=== PATIENT | female | born 1950 | race Caucasian/White ===

== ENCOUNTER 2025-02-02 19:29 | Inpatient (IN) | payer MEDICARE, SELFPAY ==
[2025-02-02] VITALS (24 sets, daily range): BP systolic 143–248; BP diastolic 70–138; BMI 18.6; BMI 18.5
[2025-02-02 15:41] LABS: Hematocrit 42.0 % (37.0-47.0); Hemoglobin 14.9 g/dL (12.0-16.0); Mean Corp Hgb Conc. 35.5 g/dL (33.0-37.0); Mean Corpuscular Volume 88.8 fL (81.0-99.0); Nucleated Red Blood Cells % 0 %; Platelet Count 386 10^3/uL (130-400); Red Cell Dist. Width 12.6 % (11.5-14.5)
[2025-02-02 15:46] LABS: INR 1.04; PT 13.9 Sec (11.4-14.6)
[2025-02-02 15:47] LABS: APTT 28.7 Sec (23.4-35.0)
[2025-02-02 15:58] LABS: ALT (SGPT) 24 U/L (0-35); AST (SGOT) 39 U/L (14-36); Albumin 5.4 g/dl (3.5-5.0); Alkaline Phosphatase 102 U/L (38-126); Blood Urea Nitrogen 21 mg/dl (7-17); Calcium 9.9 mg/dl (8.4-10.2); Carbon Dioxide 21 mmol/L (22-30); Chloride 99 mmol/L (98-107); Estimated Creatinine Clearance 36 ml/min; Glucose 269 mg/dl (70-99); Potassium 4.1 mmol/L (3.5-5.1); Sodium 135 mmol/L (135-145); Total Protein 9.2 g/dl (6.3-8.2); eGFR 59.49
[2025-02-02 16:01] LABS: Troponin I 0.029 ng/ml
--- NOTE | 2025-02-02 16:02 | ED.CVA ---
History of Present Illness
<lIan Connor Jr., PA-C - Last Filed: 02/02/25 19:07>
General
Chief Complaint: CVA/TIA Symptoms
Source: patient
Exam Limitations: none
Time Seen by Provider: 02/02/25 15:30
Nursing documentation reviewed up to this point in time: agreed with
Onset of Stroke Symptoms
Onset of symptoms known: Yes
Date of onset of symptoms: 02/02/25
Time of onset of symptoms: 12:00
Time pt last seen normal is known: No
History of Present Illness
History of Present Illness:
74-year-old female with past ministry of previous stroke a few years ago presenting to the emergency department today with concerns of an episode where she had expressive aphasia according to the daughter that occurred for roughly 30 minutes roughly
an hour prior to arrival. She does claim that she has had some constipation and has been taking medications to help with constipation did have some degree of headache sweatiness and nausea since last night. Denies any specific chest pain shortness
of breath. No ongoing neurologic symptoms.
Past History
<Ilan Connor Jr., PA-C - Last Filed: 02/02/25 19:07>
Past History
ED Past Medical History: Cancer (melanoma (excised 08/2018)), Other (Peripheral neuropathy) and Other (Chronic low back pain, compression fracture)
ED Past Surgical History: Appendectomy, Cholecystectomy and Gynecological
Social History
Tobacco: Smoker
Alcohol: Occasional
Drug: None
Living: alone
Employment: Retired
Family History
Family History: Other (Reviewed and Noncontributory; parents < 65 w/ [place])
Review of Systems
<Ilan Connor Jr., PA-C - Last Filed: 02/02/25 19:07>
Review of Systems
Allergies reviewed?: Yes
All Other Systems: ROS reviewed and negative except as documented in HPI and ROS
Phy Exam
<Ilan Connor Jr., PA-C - Last Filed: 02/02/25 19:07>
Physical Exam
Physical Exam:
GENERAL: Alert , in no apparent distress
EYE: pupils equal and reactive
NECK: Supple, no significant adenopathy.
ENT: o/p clr, mmm.
CARDIAC: Regular rate and rhythm .
LUNGS: Clear breath sounds bilaterally, no acute respiratory distress, no wheezes/rales/rhonchi
ABDOMEN: Soft, without focal tenderness, no r/g, no cvat
NEUROLOGICAL: Alert and oriented, no focal neuro deficits 5-5 upper and lower extremity strength normal sensation with palpating bilaterally normal finger-nose and heel jones no pronator drift
SKIN: Warm and dry, skin intact.
MUSCULOSKELETAL: No edema, well perfused.
PSYCH: Normal and appropriate interaction.
Course
<Ilan Connor Jr., PA-C - Last Filed: 02/02/25 19:07>
Orders/Labs/Results
Orders:
Orders
02/02/25 15:14
Electrocardiogram (*1) Urgent
Reason for Study: Other
Other Reason for Exam: Possible Stroke
Cardiac Monitoring- Treatment ONCE
02/02/25 15:15
EKG- Treatment ONCE
02/02/25 15:19
Complete Blood Count/With Diff Urgent
Comprehensive Metabolic Panel Urgent
PTT Urgent
Prothrombin Time Urgent
Troponin I Urgent
02/02/25 16:24
Acetaminophen 1000MG/100Ml [Ofirmev] 1,000 mg in 100 ml IV ONCE
Acetaminophen IV Indication:: No DC & No Enteral Access
02/02/25 16:25
CT Head & Neck Angio W/wo IV Urgent
Comment:
Reason For Exam: severe ZAIDI, aphasia
HYDROmorphone [Dilaudid] 0.5 mg IV NOW STA
02/02/25 16:27
HYDROmorphone [Dilaudid] 0.5 mg .ROUTE .STK-MED ONE
02/02/25 17:41
Labetalol HCl [Trandate] 10 mg IV NOW STA
02/02/25 18:55
Labetalol HCl [Trandate] 20 mg .ROUTE .STK-MED ONE
02/02/25 19:04
Urine Culture Reflexed from UA [Urinalysis Reflex To Culture] Urgent
02/02/25 19:05
HYDROmorphone [Dilaudid] 0.5 mg IV NOW STA
02/02/25 19:15
Nicardipine 40 mg/200 ml [Cardene] 40 mg in 200 ml IV PER PROTOCOL
Initial dose in mg/hr, then titrate:: 5
Titrate to keep:: BP < 180/105 mmHg
Titrate by mg/hr:: 2.5 mg/hr
Frequency of titrations (minutes):: 5-15 minutes
Maximum dose in mg/hr:: 15
Begin to taper infusion when:: Remained at goal for 2hrs
Taper by mg/hr:: 2.5 mg/hr
Frequency of taper (minutes) if patient maintains goal:: every 15-30 minutes
Taper to off?: Yes
If infusion off & no longer maintaining goal:: Contact Provider
Abnormal Lab Results
02/02/25
15:19
MCH 31.5 H pg
(27.0-31.0)
Abs Immat Gran (auto) 0.1 H 10^3/uL
(0-0.05)
Absolute Neuts (auto) 7.7 H 10^3/uL
(1.4-6.5)
Absolute Lymphs (auto) 1.0 L 10^3/uL
(1.2-3.4)
Absolute Monos (auto) 0.9 H 10^3/uL
(0.1-0.6)
Immature Gran % 0.7 H %
(0-0.5)
Neutrophils % 79.5 H %
(42.2-75.2)
Lymphocytes % 10.7 L %
(20.5-51.1)
Carbon Dioxide 21 L mmol/L
(22-30)
BUN 21 H mg/dl
(7-17)
Glucose 269 H mg/dl
(70-99)
AST 39 H U/L
(14-36)
Total Protein 9.2 H g/dl
(6.3-8.2)
Albumin 5.4 H g/dl
(3.5-5.0)
02/02/25 15:19
02/02/25 15:19
Vital Signs
Initial and Last Documented VS:
Initial Vital Signs
Temp Pulse Resp BP Pulse Ox
97.8 F 94 14 229/100 100
02/02/25 15:07 02/02/25 15:07 02/02/25 15:07 02/02/25 15:07 02/02/25 15:07
Last Documented Vital Signs
Temp Pulse Resp BP Pulse Ox
97.8 F 96 19 219/104 100
02/02/25 15:07 02/02/25 18:55 02/02/25 18:30 02/02/25 18:55 02/02/25 16:05
<Qian Bustamante MD - Last Filed: 02/02/25 16:29>
Orders/Labs/Results
Orders:
Orders
02/02/25 15:14
Electrocardiogram (*1) Urgent
Reason for Study: Other
Other Reason for Exam: Possible Stroke
Cardiac Monitoring- Treatment ONCE
02/02/25 15:15
EKG- Treatment ONCE
02/02/25 15:19
Complete Blood Count/With Diff Urgent
Comprehensive Metabolic Panel Urgent
PTT Urgent
Prothrombin Time Urgent
Troponin I Urgent
02/02/25 16:24
Acetaminophen 1000MG/100Ml [Ofirmev] 1,000 mg in 100 ml IV ONCE
Acetaminophen IV Indication:: No DC & No Enteral Access
02/02/25 16:25
CT Head & Neck Angio W/wo IV Urgent
Comment:
Reason For Exam: severe ZAIDI, aphasia
HYDROmorphone [Dilaudid] 0.5 mg IV NOW STA
02/02/25 16:27
HYDROmorphone [Dilaudid] 0.5 mg .ROUTE .STK-MED ONE
02/02/25 17:41
Labetalol HCl [Trandate] 10 mg IV NOW STA
02/02/25 18:55
Labetalol HCl [Trandate] 20 mg .ROUTE .STK-MED ONE
02/02/25 19:04
Urine Culture Reflexed from UA [Urinalysis Reflex To Culture] Urgent
02/02/25 19:05
HYDROmorphone [Dilaudid] 0.5 mg IV NOW STA
02/02/25 19:15
Nicardipine 40 mg/200 ml [Cardene] 40 mg in 200 ml IV PER PROTOCOL
Initial dose in mg/hr, then titrate:: 5
Titrate to keep:: BP < 180/105 mmHg
Titrate by mg/hr:: 2.5 mg/hr
Frequency of titrations (minutes):: 5-15 minutes
Maximum dose in mg/hr:: 15
Begin to taper infusion when:: Remained at goal for 2hrs
Taper by mg/hr:: 2.5 mg/hr
Frequency of taper (minutes) if patient maintains goal:: every 15-30 minutes
Taper to off?: Yes
If infusion off & no longer maintaining goal:: Contact Provider
Abnormal Lab Results
02/02/25
15:19
MCH 31.5 H pg
(27.0-31.0)
Abs Immat Gran (auto) 0.1 H 10^3/uL
(0-0.05)
Absolute Neuts (auto) 7.7 H 10^3/uL
(1.4-6.5)
Absolute Lymphs (auto) 1.0 L 10^3/uL
(1.2-3.4)
Absolute Monos (auto) 0.9 H 10^3/uL
(0.1-0.6)
Immature Gran % 0.7 H %
(0-0.5)
Neutrophils % 79.5 H %
(42.2-75.2)
Lymphocytes % 10.7 L %
(20.5-51.1)
Carbon Dioxide 21 L mmol/L
(22-30)
BUN 21 H mg/dl
(7-17)
Glucose 269 H mg/dl
(70-99)
AST 39 H U/L
(14-36)
Total Protein 9.2 H g/dl
(6.3-8.2)
Albumin 5.4 H g/dl
(3.5-5.0)
02/02/25 15:19
02/02/25 15:19
Vital Signs
Initial and Last Documented VS:
Initial Vital Signs
Temp Pulse Resp BP Pulse Ox
97.8 F 94 14 229/100 100
02/02/25 15:07 02/02/25 15:07 02/02/25 15:07 02/02/25 15:07 02/02/25 15:07
Last Documented Vital Signs
Temp Pulse Resp BP Pulse Ox
97.8 F 96 19 219/104 100
02/02/25 15:07 02/02/25 18:55 02/02/25 18:30 02/02/25 18:55 02/02/25 16:05
<Edwiblur Connor Jr., PA-C - Last Filed: 02/02/25 19:07>
MDM/Problems Addressed
MDM/Problems Addressed:
74-year-old female presenting to the emergency department today with concerns of expressive aphasia prior to arrival. Now fully resolved. On arrival here blood pressure elevated otherwise vital signs are normal. No ongoing neurologic symptoms at
this point. Does have a very mild headache. Roughly an hour into ER stay the patient had worsening of headache she was given dose of Dilaudid with improvement. Blood pressure improving after Dilaudid as well. She had a CT scan without emergent
findings. Due to her significant elevated blood pressure and neurologic symptoms plan to admit for further treatment and monitoring.
<Ilan Connor Jr., PA-C - Last Filed: 02/02/25 19:07>
*Pulse Oximetry
SaO2: 100
Oxygen Mode of Delivery: Room air
Patient hypoxic: no (100)
*Critical Care Note
Total Time (30-74mins, 75-104mins- exclusive of procedures): Not Applicable
ED Attending Note
<Ilan Connor Jr., PA-C - Last Filed: 02/02/25 19:07>
-
Portions of this chart may have been created with voice recognition software.� Occasional wrong word or��sound alike� substitutions may have occurred due to the inherent limitations of voice recognition software.
<Qian Bustamante MD - Last Filed: 02/02/25 16:29>
ED Attending Note
Patient seen and examined by attending physician: Yes
I performed the substantive portion of visit, reviewed & personally made and approve the management plan that is documented in note by myself or KARUNA.: Yes
ED Attending Note:
Patient is a 74-year-old female who initially presented with mild headache and brief expressive aphasia. Patient reports that her speech is now back to normal but since being here, she has developed a severe throbbing headache associated with
nausea. Patient denies chest pain or shortness of breath. On exam, patient appears uncomfortable but nontoxic. She is fully awake, alert and oriented x 3. She is a nonfocal neurological exam. Patient will go down for a CT head and CTA given her
severe headache and hypertension. Of concern is certainly TIA and hypertensive urgency possibly emergency
Discharge Plan
Departure
Patient Disposition: Admit
Date of Disposition: 02/02/25
Time of Disposition: 19:07
Admit to: Telemetry
Admit to doctor: Héctor
Presentation/result/management discussed w/ accepting MD/DO: Hospitalist
Patient with high blood pressure during this ER visit?: No
Condition: Good
Covid-19: Not Applicable
Discharge Problem:
Hypertensive emergency, Expressive aphasia
Prescriptions:
No Action
sennosides [senna] 1 TABLET tablet
2 tab PO DAILYPRN PRN (Reason: constipation) Qty: 60 0RF
nortriptyline 25 MG capsule
50 mg PO HS 0RF
oxycodone-acetaminophen 5 MG/325 MG tablet
1 tab PO Q4HPRN PRN (Reason: MODERATE PAIN) 0RF
aspirin 81 MG tablet,chewable
81 mg PO DAILY Qty: 30 0RF
duloxetine 60 MG capsule,delayed release(DR/EC)
60 mg PO DAILY 0RF
cholecalciferol (vitamin D3) 1,000 UNITS tablet
1,000 units PO DAILY Qty: 30 0RF
Referrals:
NONE,* [Family Provider, Internal Medicine]
Interventions
Interventions:
*Risk Screen - Suicide Last Done: 02/02/25 15:07
*General Assessment Last Done: 02/02/25 15:07
*Neglect/Abuse Screening Last Done: 02/02/25 15:07
*ED COVID-19 Vaccine History Last Done: 02/02/25 15:07
ED- Pulmonary Assessment Last Done: 02/02/25 16:00
ED- Neurological Assessment Last Done: 02/02/25 16:00
ED- Cardiac Assessment Last Done: 02/02/25 16:00
Discharge Date and Time
Print Language: MEXICAN
[2025-02-02] MEDS: DILAUDID 0.5 MG IV ×2 (16:28→19:07)
--- NOTE | 2025-02-02 18:24 | HPS.HSE ---
Family Physician
-
Family Physician: * NONE
Chief Complaint
-
episode of expressive aphasia
History of Present Illness
Patient is a 74-year-old female with past medical history significant for hypertension, hyperlipidemia, type 2 diabetes and Hx ischemic stroke who presented to [facility] ED for evaluation of an episode of expressive aphasia. Patient and daughter at
bedside to assist in HPI. Patient today had acute onset of not feeling well that she describes as headache, nausea and inability to get words out effectively. Daughter reports that patient behavior was off with text and phone call expressing she was
not feeling well. She stated that her mom was unable to get full sentences out and sounded to be hyperventilating. She called 911 to transport patient to ED for evaluation. Daughter also expressed that she feels her mom has had some cognitive
decline intermittently or greater than the last month. Denies any fever, chills, cough, shortness of breath, chest pain, vomiting or urinary symptoms.
Medical History
Past Medical History
Past Medical History: Reports Other
Additional Past Medical History:
hypertension
hyperlipidemia
type 2 diabetes
Hx ischemic stroke 06/09
pancreatitis
melanoma
thoracic compression fx
osteoporosis
Past Surgical History: Reports Other
Additional Past Surgical History:
hysterectomy total, BSO (fibroids)
cholecystectomy
appendectomy
Wide excision of melanoma of back (Dr. Dickerson) 09/06/2018
Social History
Tobacco: Smoker (vape daily, former cigarettes )
Alcohol: None
Drug: None
Living: Alone
Family History
Family History: Not pertinent
Allergies / Home Medications
Allergies reflects when Allergies were last updated in [employer].
Home Medications with original date entered in [employer]
Allergy/Medication List:
Allergies
Allergy/AdvReac Type Severity Reaction Status Date / Time
latex Allergy Itching Verified 02/04/20 23:22
Home Medications
aspirin 81 mg chewable tablet 81 mg PO DAILY #30 tabs 07/01/19
cholecalciferol (vitamin D3) 25 mcg (1,000 unit) tablet 1,000 units PO DAILY #30 tabs 07/01/19
duloxetine 60 mg capsule,delayed release 60 mg PO DAILY 07/01/19
nortriptyline 25 mg capsule 50 mg (2 x 25 mg) PO HS 07/01/19
oxycodone-acetaminophen 5 mg-325 mg tablet 1 tab PO Q4HPRN PRN MODERATE PAIN 07/01/19
sennosides 8.6 mg tablet (senna) 2 tab PO DAILYPRN PRN constipation #60 tabs 07/01/19
Review of Systems
-
History Source: Patient and Family
Constitutional: Reports Sleep Disturbance; Denies Fever or Chills
EENT: Denies Sore Throat
Respiratory: Denies Cough or Trouble Breathing
Cardiac: Denies Chest Pain, Diaphoresis or Palpitations
Abdomen/GI: Reports Nausea; Denies Abdominal Pain or Vomiting
: Denies Dysuria, Frequency or Flank Pain
Musculoskeletal: Denies Joint Swelling
Skin: Denies Rash
Neurological: Reports Headache and Numbness; Denies Dizzy or Weakness
Physical Exam
Vital Signs
Vital Signs
Temp Pulse Resp BP Pulse Ox
97.8 F 94 14 229/100 100
02/02/25 15:07 02/02/25 15:07 02/02/25 15:07 02/02/25 15:07 02/02/25 16:05
Physical Exam
General: Well Developed, Well Nourished, No Apparent Distress, Comfortable and Conversant
HEENT: NormoCephalic, Moist mucous membranes and Atraumatic
Respiratory: Clear and Non Labored Respirations
Cardiac: S1/S2 and Regular Rhythm; No Murmur, Rub or Gallop
Breast: Deferred by me
GI: Soft, Non Tender, Non Distended and Normal Bowel Sounds; No Organomegaly
Rectal: Deferred by Provider
Genito-urinary: Deferred by me
Musculoskeletal: No Clubbing, No Cyanosis and No Edema
Skin: Warm and IV/Catheter Site; No Rash
Neuro: Awake, Alert and Nonfocal/grossly intact
Laboratory Results
-
02/02/25 15:19
02/02/25 15:
Laboratory Results
PT 13.9 Sec (11.4-14.6) 02/02/25 15:
INR 1.04 02/02/25
APTT 28.7 Sec (23.4-35.0) 02/02/25
Total Bilirubin 1.3 mg/dl (0.2-1.3) 02/02/25
AST 39 U/L (14-36) H 02/02/25
ALT 24 U/L (0-35) 02/02/25:
Alkaline Phosphatase 102 U/L (38-126) 02/02/25 15:
Troponin I 0.029 ng/ml 02/02/25 15:19
Data Reviewed
-
CT Scan: Report Reviewed by me (Head/Neck CTA: No acute intracranial abnormality. Chronic findings, as detailed above. If there is clinical concern for acute ischemia, an MRI would be more sensitive. [place] 40% stenosis of the
proximal left ICA. 30% stenosis of the right carotid bulb. Mild to moderate stenosis)
Medical Tests (Nuc Med, Echo, EKG etc): Report Reviewed by me (EKG: NORMAL SINUS RHYTHM NONSPECIFIC ST ABNORMALITY PROLONGED QT)
Lab Data: Labs Reviewed by me (BUN 21, creat 1.0, est CrCl 36, eGFR 59.49)
Impression/Plan
-
IMPRESSION/PLAN:
#expressive aphasia
#hypertensive urgency
Head/Neck CTA: No acute intracranial abnormality. Chronic findings, as detailed above. If there is clinical concern for acute ischemia, an MRI would be more sensitive.
Patent [place]
40% stenosis of the proximal left ICA. 30% stenosis of the right carotid bulb.
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 Mild stenosis at the origin of the left common carotid artery. Severe
atherosclerosis of the aortic arch.
EKG: NORMAL SINUS RHYTHM
NONSPECIFIC ST ABNORMALITY
PROLONGED QT
- Admit to telemetry
- PRN Labetalol
- start lisinopril 2.5mg daily
- NIH and neuro checks per protocol
- consider MRI if no improvement
#hypertension
#hyperlipidemia
#type 2 diabetes
#Hx ischemic stroke
Code status: full code
DVT prophylaxis: heparin sq
--- NOTE | 2025-02-02 18:52 | W.PN.UPDATE ---
Update Note
Progress Note Update
Patient seen with ALEJANDRA. Agree with her findings on history and physical. Concur with assessment and plan.
Briefly this is a 73-year-old with past medical history significant for hypertension, hyperlipidemia, [id number] diabetes, history of tobacco dependence presenting to the emergency department with episode of confusion.
Patient reported that she been having intermittent headaches for the last 1 month. She had a prior history of CVA for which she had been on aspirin statin Plavix and lisinopril. She is currently only taking aspirin statin medication. Today she
reported that she has some nausea and headaches. She reported to the rash that she was not feeling well and asked the daughter to call her back. When the daughter called her back she was unable to express herself fully. She seemed anxious.
Daughter then decided bring her to the emergency department. In the emergency department she had no focal neurological deficits and NIHSS equals 0.
In the emergency department she was hypertensive to 220/110. Pulse rate was 89, she was satting 100% on room air. She was afebrile. ECG shows a normal sinus rhythm at a rate of 85 and no ischemia. QTc 502. Troponin was 0.029.
The CT of the head and CT angio is nonacute.
CBC was unremarkable. Electrolytes BUN and creatinine were normal. Glucose was 269.
Assessment and plan
Hypertensive emergency
Suspect symptomatic hypertension/hypertensive emergency and not cva. Recent episodes of intermittent forgetfullness and confusion may be related to uncontrolled hypertension
- admit to icu
- start nicardipine gtt
- goal sbp < 180 in the first 6 hours, then titrate to goal < 160 afterwards
- start lisinopril, and consider amlodipine
- neurochecks q 6 hours
- hold off on mri at this time
- continue aspirin
- check lipid panel in am
- check tsh
DVT PPX - SCD
Code status - Full Code
[2025-02-02] MEDS: TRANDATE 10 MG IV (18:55)
[2025-02-02 21:35] LABS: Glucose - Point of Care 186 mg/dl (70-99)
[2025-02-02] MEDS: ZESTRIL 2.5 MG PO (21:48)
[2025-02-02] MEDS: TYLENOL 650 MG PO (22:01)
[2025-02-02] MEDS: PAMELOR 50 MG PO (22:03)
[2025-02-02] MEDS: NOVOLOG FLEXPEN-LOW RESISTANCE 1 UNITS SC (22:04)
[2025-02-03] VITALS (8 sets, daily range): BP systolic 104–147; BP diastolic 53–79; PULSE 86; O2SAT 99; BMI 18.6
[2025-02-03] MEDS: PERCOCET 5/325 1 TABLET PO ×2 (00:01→11:30)
[2025-02-03] MEDS: MELATONIN PO (00:34)
[2025-02-03] MEDS: HEPARIN 5000 UNITS SC ×4 (00:36→22:50)
[2025-02-03 01:14] LABS: Urine Character Clear (Clear)
[2025-02-03 02:01] LABS: Urine Red Blood Cell 0-2 /HPF (0-2); Urine White Cell 0-2 /HPF (0-5)
[2025-02-03] MEDS: TYLENOL 975 MG PO (02:21)
[2025-02-03 07:05] LABS: Blood Urea Nitrogen 29 mg/dl (7-17); Calcium 9.2 mg/dl (8.4-10.2); Carbon Dioxide 22 mmol/L (22-30); Chloride 101 mmol/L (98-107); Estimated Creatinine Clearance 33 ml/min; Glucose 168 mg/dl (70-99); HDL Cholesterol 37 mg/dl; LDL Cholesterol, Calculated 147 mg/dl; Potassium 3.4 mmol/L (3.5-5.1); Sodium 134 mmol/L (135-145); Very Low Density Lipoprotein 66 mg/dl (0-30); eGFR 53.06
[2025-02-03 08:25] LABS: Hematocrit 37.4 % (37.0-47.0); Hemoglobin 13.0 g/dL (12.0-16.0); Mean Corp Hgb Conc. 34.8 g/dL (33.0-37.0); Mean Corpuscular Volume 89.9 fL (81.0-99.0); Platelet Count 297 10^3/uL (130-400); Red Cell Dist. Width 13.0 % (11.5-14.5)
[2025-02-03 09:32] LABS: Glucose - Point of Care 223 mg/dl (70-99)
[2025-02-03] MEDS: ZESTRIL 2.5 MG PO (09:33)
[2025-02-03] MEDS: LOW STRENGTH ASPIRIN 81 MG PO (09:33)
[2025-02-03] MEDS: CYMBALTA DELAYED RELEASE 60 MG PO (09:33)
[2025-02-03] MEDS: NOVOLOG FLEXPEN-LOW RESISTANCE 2 UNITS SC (09:35)
--- NOTE | 2025-02-03 09:59 | CM ---
Addendum entered by Francisco Zaldivar 02/03/25 16:17:
Discharge order noted. pt is aware and she stated she feels she is not ready to go home today and she is awaiting for her daughter to discuss it.
MD is aware.
PT and POT evaluations noted - home PT/OT vs outpatient therapy recommended. Pt is aware. Pt does not have PCP yet and pt preferred to go for outpatient therapy.
MD is aware to provide a script for outpatient therapy: PT/OT.
D/C plan: home with outpatient therapy and family support. Daughter to transport.
Original Note:
CM following re: discharge planning.
Reviewed pt's chart, met with pt.
Pt is a 74 year old female, admitted with primary dx of expressive aphasia, hypertensive urgency. PMH includes: hypertension, hyperlipidemia, type 2 diabetes and Hx ischemic stroke.
Pt reports she just moved to [facility] 2 months ago, lives alone in an apartment 1st floor, 2 steps to enter, has supportive daughter who lives nearby and helps as needed. Pt reports she has neuropathy and that's why she uses a cane and/or a walker
when goes outside.
PT and OT will evaluate the pt to determine a level of care at discharge.
PCP: pt stated she just moved to [facility] from [place] and is looking for a new PCP. A list of PCPs in [facility] areas provided to the pt.
Ph[facility]acy: [facility].
D/C plan: most likely home with VN/outpatient therapy and family support. Awaiting for PT/OT evaluations and recommendations.
CM will follow with discharge plan updates as hospitalization progresses
[2025-02-03] MEDS: NOVOLOG FLEXPEN-LOW RESISTANCE 1 UNITS SC ×2 (11:31→18:34)
[2025-02-03 11:32] LABS: Glucose - Point of Care 159 mg/dl (70-99)
[2025-02-03 12:23] LABS: TSH 1.62 uIU/ml (0.47-4.68)
[2025-02-03] MEDS: PERCOCET 5/325 2 TABLET PO ×2 (16:25→22:56)
[2025-02-03] MEDS: CRESTOR 20 MG PO (16:26)
[2025-02-03 18:32] LABS: Glucose - Point of Care 168 mg/dl (70-99)
[2025-02-03 21:05] LABS: Glucose - Point of Care 162 mg/dl (70-99)
[2025-02-03] MEDS: MELATONIN 10 MG PO (22:50)
[2025-02-03] MEDS: PAMELOR 50 MG PO (22:50)
[2025-02-04 03:12] VITALS: BP 118/67
[2025-02-04 04:57] VITALS: BMI 18.8
[2025-02-04 06:50] LABS: Hematocrit 35.2 % (37.0-47.0); Hemoglobin 12.4 g/dL (12.0-16.0); Mean Corp Hgb Conc. 35.2 g/dL (33.0-37.0); Mean Corpuscular Volume 91.9 fL (81.0-99.0); Platelet Count 269 10^3/uL (130-400); Red Cell Dist. Width 13.0 % (11.5-14.5)
[2025-02-04 07:18] VITALS: BP 125/61
[2025-02-04 07:19] LABS: Blood Urea Nitrogen 40 mg/dl (7-17); Calcium 9.2 mg/dl (8.4-10.2); Carbon Dioxide 24 mmol/L (22-30); Chloride 100 mmol/L (98-107); Estimated Creatinine Clearance 26 ml/min; Glucose 145 mg/dl (70-99); Potassium 3.5 mmol/L (3.5-5.1); Sodium 133 mmol/L (135-145); eGFR 39.73
[2025-02-04 08:12] LABS: Glucose - Point of Care 158 mg/dl (70-99)
[2025-02-04] MEDS: NSS 1000 IV (08:38)
[2025-02-04] MEDS: NOVOLOG FLEXPEN-LOW RESISTANCE 1 UNITS SC (08:38)
[2025-02-04] MEDS: ZESTRIL 2.5 MG PO (08:39)
[2025-02-04] MEDS: HEPARIN 5000 UNITS SC (08:39)
[2025-02-04] MEDS: LOW STRENGTH ASPIRIN 81 MG PO (08:40)
[2025-02-04] MEDS: CYMBALTA DELAYED RELEASE 60 MG PO (08:42)
[2025-02-04] MEDS: PERCOCET 5/325 2 TABLET PO ×3 (08:45→17:09)
[2025-02-04 11:08] VITALS: BP 128/65
--- NOTE | 2025-02-04 12:48 | W.DCSUMMARY ---
Addendum entered and electronically signed by Jailyn Mejia MD 02/06/25 15:08:
For CDI: BMI is clinically irrelevant
Original Note:
Discharge Summary
Discharge Data
Date of Admission: 02/02/25
Date of Discharge: 02/04/25
Total time spent discharging patient (in min): 40
-
Pending Results: No
Hospital Course
Attending physician on day of discharge:
Jailyn Mejia MD
Admission diagnosis:
Expressive aphasia
Discharge diagnosis:
Hypertensive encephalopathy
Pain medication overuse headache
Hyperlipidemia
Secondary diagnoses:
Hypertension
diabetes
Consultations:
None
Procedures:
None
Hospital course:
74F with HTN, HLD, DM 2P/W expressive aphasia, and headache. On admission was found to have SBP in 220s. Was treated for hypertensive urgency with labetalol and lisinopril. Blood pressure normalized. Headache improved, but then patient did have
minor headaches, and on further questioning she takes oxycodone/acetaminophen 10 mg about 4 times daily for back pain, she follows with pain management Dr. Locke, and she recently ran out of medicine because she was taking more in the last month
(she is prescribed 180 tabs per month which would be enough to take 6 times a day so she should have leftovers). Advised patient that she is having opioid pain medication overuse headaches and she needs to wean down or off of them and use
adjunctive medications instead. She is to follow-up with her pain medicine physician. Her cholesterol was found to be high and she was started on high-dose statin, and sent home with prescription for the lisinopril for her blood pressure. She is
to establish care with a PCP.
Physical exam on discharge:
Gen: NAD
HEENT: PERRLA, EOMI, MMM, neck supple
Cards: RRR, no M/G/R
Resp: Lungs CTAB, no W/R/R
GI: soft, NT/ND/NABS
MSK: No edema
Skin: warm and dry, no rash, ulcer or lesions
Heme: No LAD
Psych: Calm
Neuro: AAOx3
Discharge disposition:
Home with outpatient PT
Discharge Plan
-
Patient Disposition: Home (Routine Discharge)
Discharge Diagnosis/Procedures: hypertensive urgency, elevated cholesterol, pain medication overuse induced headaches
Diet: Low Cholesterol and Low Sodium
Activity: No restrictions
Other Services: PT and OT
Activity Restrictions/Additional Instructions:
You were started on a blood pressure medication for your high blood pressure as well as cholesterol medication for your high cholesterol. You continue to have headaches which are possibly due to pain medication use. This is called a medication
overuse headache.
You should have your pain management doctor wean down the dose and frequency of your opioid pain medication.
You should also consider other medications that will help treat your pain that are nonnarcotic such as SSRIs, bupropion, SNRIs, duloxetine, nortriptyline, TCAs, NSAIDs, gabapentin or pregabalin, topical lidocaine or capsaicin, acetaminophen.her pain
medicine provider could also discussed with you about buprenorphine.
Instructions: High cholesterol, High blood pressure emergencies, Opioid use disorder, Weaning Patients Off of Pain Drugs, Taking opioids safely, Medication overuse headache
Referrals:
[facility] [Outside] - in one week
NONE,* [Family Provider, Internal Medicine]
Prescriptions:
New
lisinopril 2.5 mg Tablet
2.5 mg PO DAILY Qty: 30 0RF
rosuvastatin 20 mg Tablet
20 mg PO QPM Qty: 30 0RF
(DME) PT
See Rx Instructions .Route .MEDSUPPLY Qty: 1 0RF
Rx Instructions:
Home Physical Therapy eval and treat
Continued
melatonin 12 mg Tablet,Disintegrating
12 mg PO HS
oxycodone-acetaminophen 10-325 mg Tablet
1 tab PO Q4H PRN (Reason: moderate pain)
sennosides [senna] 1 TABLET tablet
2 tab PO DAILYPRN PRN (Reason: constipation) Qty: 60 0RF
nortriptyline 25 MG capsule
50 mg PO HS 0RF
aspirin 81 MG tablet,chewable
81 mg PO DAILY Qty: 30 0RF
duloxetine 60 MG capsule,delayed release(DR/EC)
60 mg PO DAILY 0RF
cholecalciferol (vitamin D3) 1,000 UNITS tablet
1,000 units PO DAILY Qty: 30 0RF
Discharge Orders:
Discharge Patient (As Directed); Ordered 02/03/25
Ordered By: Jailyn Mejia
Discharge Date and Time
Print Language: LEBANESE
[2025-02-04] MEDS: NOVOLOG FLEXPEN-LOW RESISTANCE SC ×2 (12:56→17:10)
[2025-02-04 13:04] LABS: Glucose - Point of Care 188 mg/dl (70-99)
--- NOTE | 2025-02-04 13:12 | CM ---
CM following re: discharge planning.
Reviewed pt's chart, met with pt.
Pt is aware she will be discharged home today, expressed her agreement and she stated her daughter will transport home. IMM reviewed, placed on chart, pt has a copy.
Pt stated her address is: [address] [place] [address], [address], [place] [id number].
Pt will need a script for outpatient PT/OT.
D/C plan: home with outpatient PT/OT and family support. Daughter to transport.
--- NOTE | 2025-02-04 15:17 | PN.CDI ---
CDI
- -
CDI:
Physician Documentation Request
Admit Date: 02/02/25 19:29
Dear Doctor Roberto,
Patient admitted with hypertensive emergency.
Please review the following and provide your response in the progress notes.
Clinical Indicators:
Height: 5' 2 ' 9 oz
Weight: 102 lb 9 oz
BMI: 18.8
Please provide an associated diagnosis related to the abnormal BMI, such as:
Underweight
Cachectic
Anorexia
Other
BMI < or = to 19
Underweight
Weight Loss
Cachectic
Anorexia
Use of terms such as suspected, likely, concern for, or probable (associated with a specific diagnosis that is being evaluated, monitored, or treated as if it exists) are acceptable and can be coded in the inpatient setting, when documented at the
time of discharge.
Thank you,
Lily CID,RN,CCDS
CDI Specialist
Available via [place] text
Please use your independent medical judgment in providing your response.
[2025-02-04 15:21] VITALS: BP 133/72
[2025-02-04] MEDS: HEPARIN SC (17:10)
== END 2025-02-04 17:34 | disposition home or self-care (01) | DRG 78 ==
LOC: 2 NORTH 19:29
PROVIDERS: Emergency Medicine; Nurse Practitioner Family; ADMITTING PHYSICIAN Internal Medicine; ATTENDING PHYSICIAN Internal Medicine; EMERGENCY PHYSICIAN Emergency Medicine
DX: I67.4 Hypertensive encephalopathy (principal); I16.1 Hypertensive emergency; I10 Essential (primary) hypertension; G44.40 Drug-induced headache, not elsewhere classified, not intractable; E11.9 Type 2 diabetes mellitus without complications; Z86.73 Personal history of transient ischemic attack (TIA), and cerebral infarction without residual deficits; M81.0 Age-related osteoporosis without current pathological fracture; F17.200 Nicotine dependence, unspecified, uncomplicated; Z90.710 Acquired absence of both cervix and uterus; E78.00 Pure hypercholesterolemia, unspecified; I70.0 Atherosclerosis of aorta; G62.9 Polyneuropathy, unspecified; G89.29 Other chronic pain
CPT/HCPCS: 70496; 70498; 80048; 80053; 80061; 81003; 81015; 82962; 84443; 84484; 85025; 85027; 85610; 85730; 93005; 96374; 96375; 96376; 97163; 99285; Q9967